=== PATIENT | female | born 1980 | race Caucasian/White ===

== ENCOUNTER 2019-02-17 22:36 | Emergency (ER) | payer BC ==
[~2019-02-17] VITALS: Ht 152.4 cm; Wt 54.4 kg
[2019-02-17] MEDS ORDERED: HYDROCODONE/APAP 7.5MG-325MG 1 EA TAB PO PRN (23:30)
[2019-02-17] MEDS ORDERED: HYDROCODONE/APAP 7.5MG-325MG 1 EA TAB ONE (23:32)
--- NOTE | 2019-02-18 00:22 | Diagnostic Imaging Report ---
ANKLE 3+ VIEWS LEFT - 3 views HISTORY: Pain status post fall. COMPARISON: None available. FINDINGS: Bones: There is a lower corticated ossicle projected distal to the distal fibular epiphysis measuring 6.1 mm suggesting prior avulsion injury. Well-corticated ossicle projected on the talonavicular joint on the lateral view also suggestive of remote injury. Mild irregularity of the distal tibial epiphysis anteriorly on the lateral view. Joints: The joint spaces are well-maintained. Soft tissues: Severe lateral malleolar soft tissue swelling. Phleboliths distal lower right. Small ankle effusion. IMPRESSION: 1. Possible nondisplaced fracture of the distal tibial epiphysis. 2. Severe lateral malleolar soft tissue swelling. Probable remote avulsion injury of the distal fibular epiphysis. Consider nonemergent MRI of ankle for evaluation of ligamentous injury. Signed by: Dr. Paula Serrano M.D. on 02/18/2019 12:19 AM
== END 2019-02-18 00:50 | disposition home or self-care (01) ==
LOC: ER 22:36
DX: S82.875A Nondisplaced pilon fracture of left tibia, initial encounter for closed fracture (principal); S93.492A Sprain of other ligament of left ankle, initial encounter; W18.30XA Fall on same level, unspecified, initial encounter; X50.1XXA Overexertion from prolonged static or awkward postures, initial encounter; Y92.009 Unspecified place in unspecified non-institutional (private) residence as the place of occurrence of the external cause
CPT/HCPCS: 99283

== ENCOUNTER 2019-07-05 11:07 | Inpatient (IN) | payer BC ==
[~2019-07-05] VITALS: Ht 152.4 cm; Wt 53.1 kg
--- OUTSIDE RECORDS SUMMARY | 2019-07-05 11:10 | XMS REPORT ---
Author Author [facility] Address Unknown Phone Unavailable Care Team Providers Care Cna Ltc Name Role Phone Gely CASTRO Unavailable Unavailable Payers Payer Name Policy Type Policy Number Effective Date Expiration Date Problems This patient has no known problems. Allergies, Adverse Reactions, Alerts This patient has no known allergies or adverse reactions. Medications This patient has no known medications. Results Test Description Test Time Test Comments Text Results Atomic Results Result Comments ANKLE 3+ VIEWS LEFT 2019-02-18 00:15:00 [place] [address] Patient Name: PRERNA HOUSER MR #: [id number] : 1980 Age/Sex: 39/F Req #: [id number] Adm Physician: Ordered by: JAIR CASTRO MD Report #: [id number] Location: ER Room/Bed: Procedure: [id number] DX/ANKLE 3+ VIEWS LEFT Exam Date: 02/18/19 Exam Time: 2350 REPORT STATUS: Signed ANKLE 3+ VIEWS LEFT - 3 views HISTORY: Pain status post fall. COMPARISON: None available. FINDINGS: Bones: There is a lower corticated ossicle projected distal to the distal fibular epiphysis measuring 6.1 mm suggesting prior avulsion injury. Well-corticated ossicle projected on the talonavicular joint on the lateral view also suggestive of remote injury. Mild irregularity of the distal tibial epiphysis anteriorly on the lateral view. Joints: The joint spaces are well- maintained. Soft tissues: Severe lateral malleolar soft tissue swelling. Phleboliths distal lower right. Small ankle effusion. IMPRESSION: 1. Possible nondisplaced fracture of the distal tibial epiphysis. 2. Severe lateral malleolar soft tissue swelling. Probable remote avulsion injury of the distal fibular epiphysis. Consider nonemergent MRI of ankle for evaluation of ligamentous injury. Signed by: Dr. Paula Serrano M.D. on 02/18/2019 12:19 AM Dictated By: DANUTA SERRANO MD, MD Transcribed By: ELISA on 02/18/1918 COPY TO: JAIR CASTRO MD
[2019-07-05] MEDS ORDERED: KETOROLAC TROMETHAMINE 30 MG/ML VIAL IV STA (11:20)
[2019-07-05] MEDS ORDERED: SODIUM CHLORIDE 0.9% 1000ML 1,000 ML IV STA ×2 (11:20→12:51)
[2019-07-05 11:54] LABS: BASOPHILS # (AUTO) 0.1 (0.0-0.1); BASOPHILS % 0.3 % (0.0-1.0); EOSINOPHILS % 0.1 % (0.0-6.0); HEMATOCRIT 42.2 % (34.2-44.1); HEMOGLOBIN 14.5 g/dL (12.0-16.0); LYMPHOCYTES # (AUTO) 0.9 (1.0-3.2); LYMPHOCYTES % 2.7 % (18.0-39.1); MEAN CORPUSCULAR HEMOGLOBIN 30.5 pg (28-32); MEAN CORPUSCULAR HGB CONC 34.4 g/dL (31-35); MEAN CORPUSCULAR VOLUME 88.8 fL (81-99); MONOCYTES # (AUTO) 1.3 (0.2-0.8); MONOCYTES % 3.9 % (4.4-11.3); NEUTROPHILS # (AUTO) 29.1 (2.1-6.9); NEUTROPHILS % 89.5 % (38.7-80.0); PLATELET COUNT 398 x10e3/uL (140-360); RED BLOOD COUNT 4.75 x10e6/uL (3.6-5.1); RED CELL DISTRIBUTION WIDTH 13.6 % (11.7-14.4)
[2019-07-05 12:10] LABS: STREPTOCOCCUS GRP A ANTIGEN NEGATIVE (NEGATIVE)
[2019-07-05 12:12] LABS: ALANINE AMINOTRANSFERASE 17 IU/L (0-55); ALBUMIN 3.3 g/dL (3.5-5.0); ALKALINE PHOSPHATASE 89 IU/L (40-150); ANION GAP 12.1 mmol/L (8-16); BLOOD UREA NITROGEN 12 mg/dL (7-26); BUN/CREATININE RATIO 15 (6-25); CALCIUM 9.5 mg/dL (8.4-10.2); CARBON DIOXIDE 25 mmol/L (22-29); CHLORIDE 101 mmol/L (98-107); CREATINE KINASE 26 IU/L (29-168); CREATININE, SERUM 0.78 mg/dL (0.57-1.11); EST GLOMERULAR FILTRATION RATE > 60 ML/MIN (60-); GLUCOSE 119 mg/dL (74-118); POTASSIUM 3.1 mmol/L (3.5-5.1); SODIUM 135 mmol/L (136-145)
[2019-07-05 12:14] LABS: INFLUENZAE A&B ANTIGEN (RAPID) NEGATIVE (NEGATIVE)
[2019-07-05 12:30] LABS: MONOCYTES % (MANUAL) 3 % (3.4-9.0); NEUTROPHILS % (MANUAL) 97 % (40-74)
--- NOTE | 2019-07-05 12:31 | Diagnostic Imaging Report ---
Exam: Chest radiograph Clinical History: Flulike symptoms Findings: The cardiomediastinal silhouette and lungs are normal. The regional skeleton and soft tissue are unremarkable. There is no evidence of pleural effusion or pneumothorax. Impression: No radiographic evidence of acute cardiopulmonary disease. Signed by: Dr. Daniel Ortiz MD on 07/05/2019 12:29 PM
[2019-07-05] MEDS ORDERED: PIPER-TAZ 3.375 GM 50 ML IV STA (13:19)
[2019-07-05] MEDS: SODIUM CHLORIDE 0.9% 1000ML 1,000 ML IV SCH ×2 (13:42→21:39)
[2019-07-05] MEDS ORDERED: VANCOMYCIN 750MG/NS 150ML IVPB 150 ML IV SCH (13:45)
[2019-07-05] MEDS ORDERED: MORPHINE SULFATE INJ 4 MG/ML INJ 1ML IV PRN (13:45)
[2019-07-05] MEDS ORDERED: ONDANSETRON HCL INJ 2MG/ML 2ML 2 MG/ML VIAL IV PRN (13:45)
[2019-07-05] MEDS ORDERED: VANCOMYCIN 1GM/NS 250 ML 250 ML IV ONE (14:00)
[2019-07-05 14:47] LABS: BILIRUBIN,URINE NEGATIVE (NEGATIVE); CLARITY,URINE CLOUDY (CLEAR); COLOR,URINE YELLOW (YELLOW); KETONES,URINE NEGATIVE (NEGATIVE); LEUKOCYTE ESTERASE ,URINE 1+ (NEGATIVE); PROTEIN,URINE DIPSTICK 1+ (NEGATIVE); URINE UROBILINOGEN 0.2 mg/dL (0.2 - 1)
[2019-07-05] MEDS ORDERED: IOPAMIDOL 370 MG/ML 200 ML INFUS..BTL INJ ONE (14:48)
[2019-07-05] MEDS ORDERED: SODIUM CHLORIDE 0.9% 50ML 50 ML ONE (14:48)
[2019-07-05 14:51] LABS: BACTERIA,URINE MODERATE /HPF; EPITHELIAL CELLS,URINE MANY /LPF; NITRITE,URINE POSITIVE (NEGATIVE); RBC,URINE 0-5 /HPF (0-5); RENAL EPITHELIAL CELLS,URINE RARE; TRANSITIONAL EPI CELLS,URINE RARE; WBC,URINE (MAN) >50 /HPF (0-5)
--- NOTE | 2019-07-05 14:55 | Diagnostic Imaging Report ---
Exam: CT pulmonary angiogram Clinical History: Pulmonary embolism DOSE REDUCTION: The exams was performed according to the departmental dose-optimization program which includes automated exposure control, adjustment of the mA and/or kV according to patient size and/or use of iterative reconstruction technique. Technique: Helical images of the chest were obtained after IV contrast administration using the pulmonary embolism protocol. Findings: There is no evidence of acute pulmonary embolism in the main pulmonary artery or its visualized branches. There is no evidence of pulmonary edema, consolidation, pleural effusion, or pneumothorax. The tracheobronchial tree is clear. There is no evidence of mediastinal or hilar adenopathy. The cardiac size is within normal limits. The great vessels are normal in caliber and configuration. The visualized upper abdominal solid organs are unremarkable. Impression: No CT evidence of acute pulmonary embolism. Signed by: Dr. Daniel Ortiz MD on 07/05/2019 2:51 PM
[2019-07-05] MEDS: VANCOMYCIN 750MG/NS 150ML IVPB 150 ML IV SCH (16:08)
[2019-07-05] MEDS: ACETAMINOPHEN 325 MG TAB PO PRN ×2 (16:13→22:26)
[2019-07-05 16:27] VITALS: BP 105/57
[2019-07-05 17:15] VITALS: BP 105/57
[2019-07-05] MEDS ORDERED: ZOLPIDEM TARTRAT5 MG PO (19:07)
[2019-07-05] MEDS ORDERED: SERTRALINE HCL100 MG PO (19:07)
[2019-07-05 20:23] VITALS: BP 101/53
[2019-07-05] MEDS: FAMOTIDINE 20 MG/2 ML VIAL IV SCH (21:39)
[2019-07-05] MEDS: PIPER-TAZ 3.375 GM 50 ML IV SCH (21:40)
--- NOTE | 2019-07-05 22:28 | NUR ---
HPI: Mrs. Rocha is a 39-year-old female who presented to the emergency department with a history of 3 days of fever, runny nose, headache, malaise, fatigue, generalized weakness. The patient also presented with left breast tenderness, heat, swelling, and redness posteriorly to breast augmentation surgery. The patient denies nausea, vomiting, chest pain, palpitations, paroxysmal nocturnal dyspnea, shortness of breath, dyspnea, abdominal pain, diarrhea, melena, dysuria, hematuria, frequency, constipation, leg swelling. Review of system: Constitutional: Fever, generalized weakness, malaise. No chills. HEENT: Headache. Denies ear pain, nose bleeding, sore throat. Cardiovascular: Denies chest pain, PND, swelling of the legs, palpitations or blackout spells. Breast: Swelling and tenderness of the left breast. Respiratory: Denies cough, hemoptysis or shortness of breath. Gastrointestinal: Denies nausea, vomiting, diarrhea, hematemesis or melena. Genitourinary: Denies hematuria, frequency or dysuria. Neurologic: Denies convulsive disorders, no focal weakness, no ataxia. Psych: Denies anxiety or depression Skin: Redness, tenderness, swelling, heat in the left breast skin. No rash. Hematological system: Denies bleeding, no petechia. Musculoskeletal: No significant deformity or swelling of the joints. Past medical history: History of anxiety, depression, insomnia. Past surgical history: Cosmetic breast augmentation surgery. Family history: Unremarkable Social history: Never smoker. No alcohol abuse. No use of drugs. Physical exam: Vital signs: Temperature: 97.9 Pulse: 106 Respiratory rate: 18 Blood pressure: 92/49 O2 sat: 94% Constitutional: The patient is oriented to person, place, and time. She appears well-developed. HEENT: Head: Normocephalic and atraumatic. PERRLA. Cardiovascular: Regular rhythm, no murmurs, no rubs, no gallops. Pulmonary/Chest: Clear bilaterally, no rales, no rhonchi. Abdominal: Soft, nontender, bowel sounds positive and normal. No distention, no guarding, no rebound. Musculoskeletal: Normal range of motion. Extremities: No edema, no clubbing. Neurological: The patient is alert and oriented to person, place, and time. Skin: Redness, tenderness, swelling, heat in the left breast. Skin is warm and dry. Psychiatric: He has a normal mood and affect. Laboratory data: WBC: 32.54 RBC: 4.75 Hgb: 14.5 HCT: 42.2 MCV: 88.8 MCH: 30.5 MCHC: 34.4 RDW: 13.6 Platelet count: 398 Neutrophils: 89.5% Lymphocytes: 2.7% Monocytes: 3.9% Eosinophils: 0.1% Basophils: 0.3% Neutrophils: 29.1 Lymphocytes: 0.9 Monocytes: 1.3 Eosinophils: 0.0 Basophils: 0.1 Abs immature Gran: 1.14 Total counted: 33 Neutrophils percent manual: 97 Monocytes percent manual: 3 D-dimer: 418 Sodium: 135 Potassium: 3.1 Chloride: 101 Carbon dioxide: 25 Anion gap: 12.1 BUN: 12 Creatinine: 0.78 Estimated GFR: > 60 BUN/creatinine ratio: 15 Glucose: 119 Lactic acid: 1.6 Calcium: 9.5 Total bilirubin: 0.5 AST: 18 ALT: 17 Alkaline phosphatase: 89 Creatinine kinase: 26 CK-MB: 0.50 Troponin I: 0.002 Total protein: 6.7 Albumin: 2.3 Globulin: 3.4 Albumin/globulin ratio: 1.0 hCG, Qual: Negative Urinalysis: Urine color: Yellow Urine clarity: Cloudy Urine pH: 5.5 Urine specific gravity: 1.015 Urine protein: 1+ Urine glucose: Negative Urine ketones: Negative Urine blood: Trace Urine nitrate: Positive Urine bilirubin: Negative Urine urobilinogen: 0.2 Urine leukocyte Estrace: 1+ Urine RBC: 0-5 Urine WBC: > 50 Urine epithelial cells: Many Urine transitional epithelial cells: Rare Urine renal epithelial cells: Rare Urine bacteria: Moderate Serology: Influenza types A, B Ag: Negative Group A strep screen: Negative Assessment: Status post breast implant Cellulitis of the left breast Plan of care: Supportive care List of medications reviewed Reconciled medications Warm compress to the local area IV antibiotics IV fluids Pain control DVT/GI prophylaxis ID consultation Follow-up labs Consult ID
[2019-07-05 22:34] VITALS: BP 100/53
[2019-07-06] VITALS (8 sets, daily range): BP systolic 87–107; BP diastolic 46–62
[2019-07-06] MEDS: ZOLPIDEM TARTRATE 5 MG TAB PO PRN (00:12)
[2019-07-06] MEDS: VANCOMYCIN 750MG/NS 150ML IVPB 150 ML IV SCH (03:30)
[2019-07-06 05:11] LABS: BASOPHILS % 0.2 % (0.0-1.0); EOSINOPHILS # (AUTO) 0.1 (0.0-0.4); EOSINOPHILS % 0.5 % (0.0-6.0); HEMATOCRIT 35.2 % (34.2-44.1); HEMOGLOBIN 12.3 g/dL (12.0-16.0); LYMPHOCYTES # (AUTO) 1.3 (1.0-3.2); LYMPHOCYTES % 5.9 % (18.0-39.1); MEAN CORPUSCULAR HEMOGLOBIN 30.7 pg (28-32); MEAN CORPUSCULAR HGB CONC 34.9 g/dL (31-35); MEAN CORPUSCULAR VOLUME 87.8 fL (81-99); MONOCYTES # (AUTO) 1.3 (0.2-0.8); MONOCYTES % 6.2 % (4.4-11.3); NEUTROPHILS # (AUTO) 18.3 (2.1-6.9); NEUTROPHILS % 85.4 % (38.7-80.0); PLATELET COUNT 316 x10e3/uL (140-360); RED BLOOD COUNT 4.01 x10e6/uL (3.6-5.1); RED CELL DISTRIBUTION WIDTH 13.5 % (11.7-14.4)
[2019-07-06 05:36] LABS: ALANINE AMINOTRANSFERASE 73 IU/L (0-55); ALBUMIN 2.3 g/dL (3.5-5.0); ALBUMIN/GLOBULIN RATIO 0.9 (0.8-2.0); ALKALINE PHOSPHATASE 85 IU/L (40-150); ANION GAP 8.1 mmol/L (8-16); BLOOD UREA NITROGEN 9 mg/dL (7-26); BUN/CREATININE RATIO 15 (6-25); CALCIUM 7.9 mg/dL (8.4-10.2); CARBON DIOXIDE 22 mmol/L (22-29); CHLORIDE 112 mmol/L (98-107); CREATININE, SERUM 0.59 mg/dL (0.57-1.11); EST GLOMERULAR FILTRATION RATE > 60 ML/MIN (60-); GLUCOSE 106 mg/dL (74-118); POTASSIUM 3.1 mmol/L (3.5-5.1); SODIUM 139 mmol/L (136-145)
--- NOTE | 2019-07-06 06:28 | Diagnostic Imaging Report ---
Examination: Single AP view of the chest. COMPARISON: CT chest 07/05/2019 INDICATION: Chest pain DISCUSSION: The lungs are well inflated. No focal consolidation, pleural effusion, or pneumothorax. Cardiomediastinal contour and pulmonary vasculature are within normal limits when accounting for AP technique. No acute osseous abnormalities. IMPRESSION: 1. No acute cardiopulmonary abnormalities. Signed by: Dr. Joe Contreras M.D. on 07/06/2019 6:26 AM
[2019-07-06] MEDS: PIPER-TAZ 3.375 GM 50 ML IV SCH ×3 (06:31→22:10)
[2019-07-06] MEDS: ACETAMINOPHEN 325 MG TAB PO PRN (08:58)
[2019-07-06] MEDS: SERTRALINE HCL 100 MG TAB PO SCH (08:59)
[2019-07-06] MEDS: FAMOTIDINE 20 MG/2 ML VIAL IV SCH (08:59)
[2019-07-06] MEDS: SODIUM CHLORIDE 0.9% 1000ML 1,000 ML IV SCH ×3 (09:01→22:10)
--- NOTE | 2019-07-06 14:50 | NUR ---
Visit made by the Spiritual Care Department Pastoral Visitor, Devorah Mann. PV provided pastoral presence, prayer, hospitality, and supportive listening. Pastoral Visitor informed pt/family of the scope of [employer] and availability. BURT JULES Minute Clerk For [employer] Spiritual Care Department O: [phone]
[2019-07-06] MEDS: FAMOTIDINE 20 MG TAB PO SCH (16:58)
[2019-07-06] MEDS: HYDROCODONE/APAP 5MG-325MG TAB PO PRN (18:37)
--- NOTE | 2019-07-06 19:33 | NUR ---
report given to oncoming nurse, walking rounds complete.
--- NOTE | 2019-07-06 20:23 | NUR ---
[facility] [id number]
[2019-07-07] VITALS: BP 118/59
--- NOTE | 2019-07-07 00:40 | NUR ---
Date of service: 07/06/2019 Subjective: The patient was doing fine at the time of evaluation she feels much better. She still having some pain on the left breast. She has been complaining of fever. Overall looking better. No chest pain or shortness of breath. Objective: Patient alert oriented to person time and place. Vital signs stable Vital signs: Blood pressure 107/62, respiration 20, temperature 100.5 pulse 100 HEENT: No gross abnormalities Neck: Supple no JVD Examination of the chest wall: Cellulitis on the left breast has improved. Lungs: Clear to auscultation Heart: Regular rate and rhythm, no murmurs no gallops Abdomen: Soft non tender, no guarding. Extremities: No edema Neurologic: Alert oriented 3, no focal weakness. Psychiatrist: Normal mood, normal judgment. Skin: No rashes Assessment: Cellulitis of left breast Leukocytosis Fever Plan of care: ID consultation requested with Dr. Ly Continue antibiotic as advised
--- NOTE | 2019-07-07 03:14 | Consultation ---
DATE OF CONSULTATION: 07/06/2019 REASON FOR CONSULTATION: Cellulitis of the left breast with infected implant. HISTORY OF PRESENT ILLNESS: This patient is a very pleasant 39-year-old female, who had bilateral breast implant. This is a redo. The last one was many years ago. She had it a few weeks ago. She is coming to this hospital with redness and swelling of the left breast and feeling feverish. The patient came to the emergency room, where she was evaluated and admitted. I was asked to see her. She denies any history of trauma. PAST MEDICAL HISTORY: Otherwise, she denies. PAST SURGICAL HISTORY: Multiple plastic surgeries. ALLERGIES: NKA. SOCIAL HISTORY: There is no smoking, drug abuse, or alcohol abuse. FAMILY HISTORY: Otherwise unremarkable. REVIEW OF SYSTEMS: HEENT: Negative. PULMONARY: Negative. CARDIAC: Negative. : Negative. SKIN: There are no other rashes. LABORATORY DATA: Reviewed. Her urine culture showing gram-negative rods. Blood cultures still pending. When she first came, she had a white count of 32, came back to 21, hemoglobin 14, and hematocrit 42. Sodium 139, potassium 3.1, and creatinine 0.59. She had a CT of the chest, which showed there is no evidence for acute pulmonary embolism. She had a chest x-ray that showed no acute cardiopulmonary abnormality. PHYSICAL EXAMINATION: GENERAL: She is currently alert, oriented, does not seem to be in acute distress. VITAL SIGNS: Stable, currently afebrile. Temperature 97.6, heart rate 105, respiration 87/59, and T-max was 100.5. HEENT: Normocephalic, not pale or icteric. NECK: Supple. CHEST: Few crackles at the bases. HEART: S1, S2. No S3, S4, or murmur. ABDOMEN: Soft. Bowel sounds present. No tenderness. EXTREMITIES: No edema. BREASTS: On the breast, there is erythema, there is edema, and there is warmth, but I do not see any fluctuation. No fever fluctuation. IMPRESSION: Cellulitis of the breasts. Concerned about the infected implant. Discussed with the patient. Plans discussed with Plastic Surgery. I called Dr. Costello, her plastic surgeon. The plan is to continue vancomycin and Zosyn for now. Await blood cultures. Recheck CBC. Recheck Chem panel. Would need a PICC line for a few weeks of IV antibiotic. We will see how she is going to do clinically. We will follow with you. We would like the CBC to normalize and the blood cultures to be negative before discharge. MD AILEEN Ramirez/FLORENCIO /[id number]
[2019-07-07] MEDS: VANCOMYCIN 750MG/NS 150ML IVPB 150 ML IV SCH ×2 (03:32→15:00)
[2019-07-07 04:00] VITALS: BP 93/52
[2019-07-07] MEDS: PIPER-TAZ 3.375 GM 50 ML IV SCH ×3 (06:44→21:48)
[2019-07-07] MEDS: SODIUM CHLORIDE 0.9% 1000ML 1,000 ML IV SCH ×3 (06:44→21:42)
[2019-07-07 07:32] VITALS: BP 124/59
[2019-07-07] MEDS: FAMOTIDINE 20 MG TAB PO SCH ×2 (07:45→16:29)
[2019-07-07] MEDS: SERTRALINE HCL 100 MG TAB PO SCH (07:45)
[2019-07-07 07:48] VITALS: BP 124/59
[2019-07-07] MEDS: HYDROCODONE/APAP 5MG-325MG TAB PO PRN ×3 (08:20→21:52)
--- NOTE | 2019-07-07 08:24 | NUR ---
patient left breast tenderness, heat, swelling, and redness, now has leakage, with yellowish fluid draining , Dr feldman was called.
--- NOTE | 2019-07-07 09:23 | NUR ---
Dr. Scott was recalled for 2nd time.
[2019-07-07 11:59] VITALS: BP 108/67
--- NOTE | 2019-07-07 12:00 | NUR ---
call from Dr. Baumann, to make pt NPO.
--- NOTE | 2019-07-07 12:20 | NUR ---
Dr Palomares, called for pt to be NPO, for surgery today.
[2019-07-07] MEDS ORDERED: BACITRACIN 50,000 UNIT VIAL ONE (13:26)
[2019-07-07] MEDS ORDERED: MUPIROCIN 2% OINT 22 GM TUBE ONE (15:31)
--- NOTE | 2019-07-07 17:14 | Progress Note ---
DATE: 07/07/2019 I have spoken with her surgeon yesterday and also today. SUBJECTIVE: Ms. Rocha who is currently complaining of drainage from her wound from underneath the breasts, which started today. She said it was copious amount overnight. It is better. Dr. Oliverio Frances called me yesterday, her Plastic Surgery to let me know that there is drainage from the wound. Her white count came down to 21.4. Her sodium was 139. PHYSICAL EXAMINATION: GENERAL: She is currently alert, oriented, does not seem to be in acute distress. VITAL SIGNS: Stable. Currently afebrile. HEENT: She is not icteric. NECK: Supple. HEART: S1, S2. No S3, S4, or murmur. ABDOMEN: Soft. Bowel sounds present. No tenderness and breast seem to be less erythematous. There is drainage noted underneath the breasts. IMPRESSION: Infected implant, cellulitis concerned about abscess. PLAN: To obtain wound culture. She is going for surgery today for debridement and removal of the implant, PICC line. Recheck CBC. Recheck chem panel. Discussed with all the doctors. Discussed with the patient, answered all their questions. We will obtain vancomycin level trough. MD AILEEN Ramirez/FLOERNCIO /[id number]
[2019-07-07] MEDS ORDERED: DEXAMETHASONE SOD PHOS INJ 4 MG/ML VIAL ONE (18:22)
[2019-07-07] MEDS ORDERED: ONDANSETRON HCL INJ 2MG/ML 2ML 2 MG/ML VIAL ONE (18:22)
[2019-07-07] MEDS ORDERED: LIDOCAINE HCL 2% LOCAL INJ 5 ML SDV VIAL INJ ONE (18:22)
[2019-07-07] MEDS ORDERED: SEVOFLURANE INHAL SOLN 250 ML PEN BTL ONE (18:22)
[2019-07-07] MEDS ORDERED: PROPOFOL IV EMULSION 10 MG/ML 20 ML VIAL ONE (18:22)
--- NOTE | 2019-07-07 19:15 | NUR ---
Report given to oncoming nurse, Walking rounds complete.
--- NOTE | 2019-07-07 19:26 | Operative Report ---
DATE OF PROCEDURE: 07/07/2019 SURGEON: Kodak Palomares MD TIME: 1337 hours. PREOPERATIVE DIAGNOSIS: Infected left breast implant (periprosthetic infection). POSTOPERATIVE DIAGNOSIS: Infected left breast implant (periprosthetic infection). PROCEDURES: 1. Removal of left breast implant. 2. Irrigation of left breast pocket. 3. Placement of closed suction drain. ANESTHESIA: General. HISTORY: The patient is a 39-year-old female, who underwent bilateral breast augmentation in March of 2019. The patient had her teeth cleaned approximately 10 to 12 days ago. She presented to the emergency room on the afternoon of the with fevers, chills, and left breast pain, swelling and erythema. She was admitted and started on intravenous antibiotics. Plastic Surgery consultation was obtained today. It was noted that there was significant infection around the left breast implant and recommendations made that the implant be removed. The risks, benefits, and alternatives of treatment were discussed with the patient and the family. They are prepared to undergo the procedure as outlined. PROCEDURE IN DETAIL: The patient was marked preoperatively in the holding area. She was brought to the operating theater and after the induction of adequate general anesthesia, cultures were obtained of the purulent exudate from the left breast. After the cultures were obtained, the patient was prepped and draped in a supine position and a time-out was performed. The inframammary incision was incised through the skin and subcutaneous tissues. Immediately, upon entering the pocket, purulent exudate was noted. The incision was made just large enough to allow removal of the implant without difficulty. At this point, the pocket was irrigated with several liters of antibiotic-containing solution and power lavage system. Once the effluent was clear, a 10-Georgian Derrick-Syed drain was placed within the pocket and secured to the skin with 3-0 nylon sutures. At this point, the incision was closed with a running 3-0 suture. Bactroban ointment and Xeroform gauze were placed on the incision, and a sterile dressing applied. The drain was placed on suction and was noted to hold suction well. The patient tolerated the procedure well. Estimated blood loss of procedure was minimal. She was returned to recovery room in satisfactory condition and re-admitted to her hospital room for further care and treatment. MD JACOB Durant/MODL /[id number]
[2019-07-07] MEDS ORDERED: MIDAZOLAM HCL 2 MG/2 ML VIAL ONE (20:14)
[2019-07-07] MEDS ORDERED: FENTANYL CITRATE/PF 100MCG/2 ML INJ ONE (20:14)
--- NOTE | 2019-07-07 21:36 | Consultation ---
DATE OF CONSULTATION: 07/07/2019 The physician requesting the consultation is Dr. Lana Baumann. The consultation is requested of Kodak Palomares MD, Plastic Surgery. CHIEF COMPLAINT: Infected left breast prosthesis. HISTORY OF PRESENT ILLNESS: The patient is a 39-year-old female, who states that around 2018, she underwent bilateral breast augmentation. The patient states that she was undergoing a standard dental cleaning approximately on Thursday of 06/29/2019, without any complications. She states that approximately one week later, she started to develop an achy type of feeling. She thought she was coming down with the flu. She states that approximately 48 hours later, she felt markedly worse and went to an Urgent Care Center. They could not find any source for her infection. She was given antibiotics and told to follow up with her primary care doctor. Approximately 48 hours later, she became markedly worse and this time went to the emergency room here at the hospital. She was admitted and was noted to have significant leukocytosis. The left breast was swollen and erythematous, but no drainage she reports at that time. Over the past 24 to 48 hours, the left breast has continued to worsen and now has drainage. Infectious Disease has requested Plastic Surgery evaluate the patient for possible surgical intervention. PAST MEDICAL HISTORY: Noncontributory to the current problem. PAST SURGICAL HISTORY: Noncontributory to the current problem. PHYSICAL EXAMINATION: VITAL SIGNS: She is afebrile this morning. Her vital signs are stable. CHEST: Examination of the left chest reveals her to have surgical incisions consistent with a circumareolar mastopexy and breast augmentation through an inframammary approach. The breast is swollen. It erythematous and there is purulent exudate draining from the inferior incision. LABORATORY DATA: White blood cell count on admission was 32,000, yesterday was 21,000. There is no report of CBC today. Her blood cultures are negative after 48 hours. She did have urine culture on admission, which shows E coli. She had a chest CT on admission, which does not report any fluid collections or evidence of infection in or around the breast prosthesis. IMPRESSION: Left breast periprosthetic infection. PLAN: I have discussed the pathophysiology of periprosthetic infections with the patient and her parents. She will be taken to the OR today to have the implant removed and have the pocket washed out and closed over a suction drain. Thank you for allowing me to participate in the care of your patient. MD JACOB Durant/FLORENCIO /[id number]
[2019-07-07] MEDS: ZOLPIDEM TARTRATE 5 MG TAB PO PRN (22:55)
[2019-07-07 23:32] VITALS: BP 115/56
[2019-07-08] VITALS (12 sets, daily range): BP systolic 91–116; BP diastolic 51–67
[2019-07-08] MEDS: VANCOMYCIN HCL 1.25 GM in SODIUM CHLORIDE 0.9% 250ML 250 ML IV SCH ×2 (02:26→12:00)
[2019-07-08] MEDS: VANCOMYCIN 750MG/NS 150ML IVPB 150 ML IV SCH ×2 (03:01→03:45)
[2019-07-08] MEDS: SODIUM CHLORIDE 0.9% 1000ML 1,000 ML IV SCH ×3 (03:49→22:12)
[2019-07-08] MEDS: PIPER-TAZ 3.375 GM 50 ML IV SCH ×3 (06:35→22:13)
[2019-07-08] MEDS ORDERED: XANAX0.25 MG PO (07:18)
[2019-07-08] MEDS: FAMOTIDINE 20 MG TAB PO SCH ×2 (08:43→16:42)
[2019-07-08] MEDS: SERTRALINE HCL 100 MG TAB PO SCH (08:43)
[2019-07-08] MEDS: HYDROCODONE/APAP 5MG-325MG TAB PO PRN ×4 (08:44→22:13)
[2019-07-08] MEDS ORDERED: ONDANSETRON HCL 4 MG ORAL DISINTEGRATING TAB PO PRN (09:15)
--- NOTE | 2019-07-08 19:10 | NUR ---
Report given to oncoming nurse of patient's status. Resting in bed. No s/s of acute distress noted. Side rails upx2, call light within reach, mother at bedside.
--- NOTE | 2019-07-08 21:11 | NUR ---
Subjective: The patient was seen and evaluated. The patient is in no distress. Denies fever chills. No chest pain or shortness of breath. She has been follow-up pertainining left breast periprosthetic infection. The patient was ta carlos to the OR by Dr. Palomares and the implant was removed and the pocket was out and closed over his suction drain and this information is been obtained from Dr. Palomares progress note. Postop she has been doing well no fever no chills he feels great. Objective: The patient has been alert oriented to person time place. The patient has been in no distress. Vital signs: Blood pressure 116/67, respiration 20, pulse 80, temperature 96.4 HEENT: No gross abnormalities Neck: Supple no JVD Lungs: Clear to auscultation Chest Wall: Recently underwent removal of breast implant left side Heart: Regular rate and rhythm, no murmurs no gallops Abdomen: Soft non tender, no guarding. Extremities: No edema Neurologic: Alert oriented 3, no focal weakness. Psychiatrist: Normal mood, normal judgment. Skin: No rashes Lab data: As of 07/06/2019 WBC 21.42, hemoglobin 12.3, platelet count 316,000 Sodium 139, potassium 3.1, chloride 112, CO2 22, calcium level 7.9, AST 92, ALT 73 Chest x-ray on 07/05/2019 no acute cardiopulmonary abnormalities Medications: Hampton 5/325 1 p.o. every 4 hours. For pain, famotidine 20 m p.o. twice daily, Zosyn, sertraline, Ambien, acetaminophen..... Assessment: Cellulitis of left breast Leukocytosis Fever Left breast periprosthetic infection. Plan of care: Continue present care bucrylate line continue to biotics and pain management.Follow-up labs.
[2019-07-08] MEDS: ZOLPIDEM TARTRATE 5 MG TAB PO PRN (22:22)
[2019-07-09] VITALS (10 sets, daily range): BP systolic 109–127; BP diastolic 58–86
[2019-07-09] MEDS: HYDROCODONE/APAP 5MG-325MG TAB PO PRN ×4 (04:31→19:39)
[2019-07-09] MEDS: SODIUM CHLORIDE 0.9% 1000ML 1,000 ML IV SCH ×3 (05:42→21:42)
[2019-07-09] MEDS: PIPER-TAZ 3.375 GM 50 ML IV SCH (06:00)
[2019-07-09] MEDS: FAMOTIDINE 20 MG TAB PO SCH ×2 (09:12→16:56)
[2019-07-09] MEDS: SERTRALINE HCL 100 MG TAB PO SCH (09:12)
[2019-07-09] MEDS: CEFTRIAXONE SOD 2 GM/NS 100 ML 100 ML IV SCH (14:22)
[2019-07-09] MEDS ORDERED: VANCOMYCIN HCL 1.25 GM in SODIUM CHLORIDE 0.9% 250ML 250 ML IV SCH (15:00)
--- NOTE | 2019-07-09 19:20 | NUR ---
BSSR RECEIVED FROM QUINTON RN, PATIENT AOX4, SKIN WARM DRY, NO DISTRESS NOTED, LEFT CHEST DRESSING C/D/I, SUMMER DRAIN IN PLACE PATENT, CALL LIGHT WITHIN REACH, REQUESTING PAIN MEDICATION FOR PAIN LEVEL 10/18, RN QUINTON WILL GIVEN MEDICATION PRIOR TO END OF SHIFT
--- NOTE | 2019-07-09 19:38 | NUR ---
Subjective: The patient was seen and evaluated. The patient is feeling better however complaining of headache. Denies fever, no chills. No shortness of dudley th. No abdominal pain, no nausea, no vomiting, no diarrhea. No discomfort on the left breast. Objective: Patient alert oriented to person time place. Patient no distress. Vital signs blood pressure 126/72, respiration 18, pulse 88, temperature 97.8 HEENT: No gross abnormalities Neck: Supple no JVD Chest wall: Dressing placed on the left breast Lungs: Clear to auscultation Heart: Regular rate and rhythm, no murmurs no gallops Abdomen: Soft non tender, no guarding. Extremities: No edema Neurologic: Alert oriented 3, no focal weakness. Psychiatrist: Normal mood, normal judgment. Skin: No rashes Lab data: CBC as of 07/06/2019 revealed. WBC 21,000, hemoglobin 14.5, platelet count 398,000. Assessment: Left breast periprosthetic infection Leukocytosis Fever Status post removal of left breast implant. Plan of care: Continue to biotics as per ID. PICC line in place. Follow-up labs.
--- NOTE | 2019-07-09 19:38 | NUR ---
walking rounds complete, report handed to oncoming nurse.
[2019-07-09] MEDS ORDERED: ENOXAPARIN SOD INJ 40 MG/0.4 ML SYR SC SCH (19:45)
[2019-07-09] MEDS: ZOLPIDEM TARTRATE 5 MG TAB PO PRN (21:54)
[2019-07-10] VITALS (8 sets, daily range): BP systolic 102–118; BP diastolic 62–85
[2019-07-10] MEDS: SODIUM CHLORIDE 0.9% 1000ML 1,000 ML IV SCH ×3 (01:25→21:42)
[2019-07-10] MEDS: HYDROCODONE/APAP 5MG-325MG TAB PO PRN ×3 (05:14→18:31)
[2019-07-10 06:21] LABS: BASOPHILS # (AUTO) 0.1 (0.0-0.1); BASOPHILS % 1.3 % (0.0-1.0); EOSINOPHILS # (AUTO) 0.1 (0.0-0.4); EOSINOPHILS % 1.2 % (0.0-6.0); HEMATOCRIT 33.4 % (34.2-44.1); HEMOGLOBIN 10.7 g/dL (12.0-16.0); LYMPHOCYTES # (AUTO) 2.2 (1.0-3.2); LYMPHOCYTES % 23.4 % (18.0-39.1); MEAN CORPUSCULAR HEMOGLOBIN 28.9 pg (28-32); MEAN CORPUSCULAR VOLUME 90.3 fL (81-99); MONOCYTES # (AUTO) 1.2 (0.2-0.8); MONOCYTES % 13.2 % (4.4-11.3); NEUTROPHILS # (AUTO) 4.9 (2.1-6.9); NEUTROPHILS % 52.5 % (38.7-80.0); PLATELET COUNT 485 x10e3/uL (140-360); RED CELL DISTRIBUTION WIDTH 14.2 % (11.7-14.4)
[2019-07-10 06:46] LABS: ANION GAP 10.6 mmol/L (8-16); BLOOD UREA NITROGEN 7 mg/dL (7-26); BUN/CREATININE RATIO 12 (6-25); CALCIUM 8.7 mg/dL (8.4-10.2); CARBON DIOXIDE 27 mmol/L (22-29); CHLORIDE 108 mmol/L (98-107); CREATININE, SERUM 0.58 mg/dL (0.57-1.11); EST GLOMERULAR FILTRATION RATE > 60 ML/MIN (60-); GLUCOSE 83 mg/dL (74-118); POTASSIUM 3.6 mmol/L (3.5-5.1); SODIUM 142 mmol/L (136-145)
--- NOTE | 2019-07-10 07:09 | NUR ---
END OF SHIFT REPORT GIVEN TO RN QUINTON, PATIENT NO DISTRESS NOTED SKIN WARM DRY, FAMILY(mom) AT BEDSIDE CURRENTLY, SUMMER DRAIN EMPTIED 30CC SEROSANGUINEOUS FLUID SEEN, PATIENT AMBULATORY, TELEMETRY REMAINS IN PLACE
[2019-07-10] MEDS: SERTRALINE HCL 100 MG TAB PO SCH (08:49)
[2019-07-10] MEDS: FAMOTIDINE 20 MG TAB PO SCH ×2 (08:49→18:31)
[2019-07-10] MEDS: CEFTRIAXONE SOD 2 GM/NS 100 ML 100 ML IV SCH (12:00)
--- NOTE | 2019-07-10 19:26 | NUR ---
walking rounds complete, report handed to oncoming nurse.
--- NOTE | 2019-07-10 19:48 | NUR ---
Date of Service 07/10/2019 Subjective: The patient was seen and evaluated. The patient is doing well. She is anxious to go home. Denies fever, chills, chest pain, SOB, abdominal pain, nausea or vomiting. No discomfort on the left breast. Objective: Patient alert and in no distress. VS: BP 107/85, Pulse 83, RR 20, T 97.9 HEENT: No gross abnormalities Neck: Supple no JVD Chest wall: Dressing placed on the left breast Lungs: Clear to auscultation Heart: Regular rate and rhythm, no murmurs no gallops Abdomen: Soft non tender, no guarding. Extremities: No edema Neurologic: Alert oriented 3, no focal weakness. Psychiatrist: Normal mood, normal judgment. Skin: No rashes Lab data: WBC 9.37, Hb 10.7, HT 33.4. Plat 485. Sodium 142, Potassium 3.6, Chloride 108, BUN 7,Glucose 83, Assessment: Left breast periprosthetic infection Leukocytosis Fever Status post removal of left breast implant. Plan of care: Continue antibiotics as per ID. Will order PICC Arrange for IV antibiotics infusion per behavioral health case manager
[2019-07-10] MEDS: ZOLPIDEM TARTRATE 5 MG TAB PO PRN (21:13)
[2019-07-11] VITALS (9 sets, daily range): BP systolic 91–123; BP diastolic 67–87
--- NOTE | 2019-07-11 02:07 | Diagnostic Imaging Report ---
Examination: Single AP view of the chest. COMPARISON: 07/06/2019 INDICATION: PICC placement DISCUSSION: Interval placement of a right upper extremity PICC. The tip terminates over the low superior vena cava. The lungs are well inflated. No focal consolidation, pleural effusion, or pneumothorax. Cardiomediastinal contour and pulmonary vasculature are within normal limits when accounting for AP technique. Interval postsurgical changes of the left breast with decreased density and a drainage catheter projecting over the left lower hemithorax. IMPRESSION: Tip of right upper extremity PICC terminates over the low superior vena cava. Clear lungs. Signed by: Dr. Joe Contreras M.D. on 07/11/2019 2:05 AM
[2019-07-11] MEDS: SODIUM CHLORIDE 0.9% 1000ML 1,000 ML IV SCH ×3 (05:42→21:02)
[2019-07-11] MEDS: SERTRALINE HCL 100 MG TAB PO SCH (08:23)
[2019-07-11] MEDS: FAMOTIDINE 20 MG TAB PO SCH ×2 (08:23→16:02)
[2019-07-11] MEDS: HYDROCODONE/APAP 5MG-325MG TAB PO PRN ×3 (08:36→19:05)
[2019-07-11] MEDS: CEFTRIAXONE SOD 2 GM/NS 100 ML 100 ML IV SCH (11:10)
--- NOTE | 2019-07-11 13:55 | NUR ---
PATIENT IS AWAKE, ALERT, AND IN STABLE CONDITION WITH NO S/S OF RESPIRATORY DISTRESS. PATIENT C/O LEFT BREAST PAIN 4/10. DRESSING TO LEFT BREAST AREA IS CLEAN, DRY, AND INTACT. TELEMETRY APPLIED. CALL LIGHT IS WITHIN REACH, PATIENT INSTRUCTED TO CALL FOR ASSISTANCE NEEDED.
--- NOTE | 2019-07-11 14:50 | NUR ---
Spoke with Dr. Baumann who said that pt will need IV abx for discharge. CM to pt's bedside to speak to pt regarding insurance. Her previous insurance termed. Pt states that she does not have a new insurance card, but has [employer] [place] with her new job. States should have gone into effect July 10, 2019. Cm placed call to CM for [employer] ([place] at [phone]. Left message for Kateryna for call back.
--- NOTE | 2019-07-11 14:54 | Progress Note ---
DATE: 07/10/2019 Ms. Rocha is late entry for July 09. SUBJECTIVE: Ms. Rocha was doing well. There are no new complaints. The drainage is still in, but it is less serosanguineous. The cultures were noted. She grew E coli, sensitivity pattern reviewed, resistant only to Bactrim, but otherwise pansensitive. REVIEW OF SYSTEMS: Otherwise unremarkable. OBJECTIVE: GENERAL: Currently alert, oriented, does not seem to be in acute distress. VITAL SIGNS: Stable, currently afebrile. HEENT: She is not icteric. NECK: Supple. CHEST: Clear. HEART: S1, S2. No murmur. ABDOMEN: Soft. The breast seems to be better. PLAN: To continue at least two weeks of IV Rocephin, drain is in place. Discussed with the patient, she just changed her insurance. She is going to get me the new insurance information to arrange discharge planning. Discussed with the patient, answered all her questions. MD AILEEN Ramirez/FLORENCIO /[id number]
--- NOTE | 2019-07-11 17:00 | NUR ---
Nutrition Screen Note RD Recommendation for Physician: - Continue Regular diet as tolerated Plan of Care: RD following, monitoring for tolerance and adequacy Nutrition reason for involvement: LOS Primary Diagnose(s): cellulitis of L breast PMH: anxiety, depression, breast augmentation Ht: 60 in Wt: 117.06 lb BMI: 22.9 kg/m2 IBW: [address] Assessment: (07/11/19) 39 YOF admitted for cellulitis of the L breast with recent breast augmentation. Pt seen today per LOS. Pt reports good appetite and po intake currently and PSYCH SPECIALIST. Pt denies any wt loss. Pt denies any N/V/C/D. Chart reviewed. Labs and meds reviewed. Pt with no questions or concerns at time of visit. Will continue to monitor. Current Diet: Regular Malnutrition Evaluation (07/11/19) The patient does not meet criteria for a specified degree of malnutrition at this time. Will re-evaluate at follow-up as appropriate. Diet Education Needs Assessment: Diet education not indicated. Diet tolerance: tolerating po Nutrition Care Level: Low Signed: Genna Contreras RD, LD, [facility]
[2019-07-11] MEDS: MUPIROCIN 2% OINT 22 GM TUBE TOP SCH (17:49)
--- NOTE | 2019-07-11 17:50 | NUR ---
PATIENT SHOWERED; DRESSING CHANGE TO LEFT BREAST COMPLETED- DRESSING IS CLEAN, DRY, AND INTACT. PATIENT REQUESTING PAIN MEDICATION AND IS AWARE PAIN MEDICATION WILL BE AVAILABLE IN 10 MINUTES. LAST PAIN MEDICATION ADMINISTERED AT 1400.
--- NOTE | 2019-07-11 19:24 | NUR ---
PATIENT IN STABLE CONDITION WITH NO S/S OF RESPIRATORY DISTRESS. PAIN MEDICATION GIVEN RECENTLY FOR LEFT BREAT/SURGICAL SITE PAIN 08/18. TELEMETRY APPLIED. DRESSING TO LEFT BREAST AREA IS CLEAN, DRY, AND INTACT. OUTPUT TO SUMMER DRAIN WAS 10CC. MOTHER PRESENT IN ROOM. CALL LIGHT IS WITHIN REACH, PATIENT INSTRUCTED TO CALL FOR ASSISTANCE NEEDED. BEDSIDE SHIFT REPORT GIVEN TO ONCOMING NURSE.
[2019-07-11] MEDS: ZOLPIDEM TARTRATE 5 MG TAB PO PRN (21:30)
--- NOTE | 2019-07-11 23:03 | NUR ---
Date of Service: 07/11/2019 Subjective:: The patient was doing fine anticoagulation the patient had no complaints. Wishes to go home. Awaiting decision for IV antibiotics. Discussed patient condition with ID. Objective: Patient alert oriented person time place. Patient no distress. Vital signs: Blood pressure 110/67, respiration 20, pulse 92, temperature 97.9 HEENT: No gross abnormalities Neck: Supple no JVD Lungs: Clear to auscultation Examination chest wall: Left breast implant dressing in place. Heart: Regular rate and rhythm, no murmurs no gallops Abdomen: Soft non tender, no guarding. Extremities: No edema Neurologic: Alert oriented 3, no focal weakness. Psychiatrist: Normal mood, normal judgment. Skin: No rashes Lab data: Hemoglobin 10.7, WBC 9.37, platelet count 485,000 Chemistry profile: Did reveal sodium 142, potassium 3.6, chloride 108, CO2 27, BUN 7, creatinine 0.5 Assessment: Left breast periprosthetic infection Leukocytosis Fever Status post removal of left breast implant. Plan of care: Continue antibiotics as per ID. No further recommendations. Will order PICC Arrange for IV antibiotics infusion per manager case management
[2019-07-12] VITALS (7 sets, daily range): BP systolic 85–111; BP diastolic 61–79
[2019-07-12] MEDS: SODIUM CHLORIDE 0.9% 1000ML 1,000 ML IV SCH ×3 (05:42→21:42)
--- NOTE | 2019-07-12 07:02 | NUR ---
Bedside report and rounds completed with oncoming nurse. Patient in bed with call light within reach. No issues or concerns noted.
--- NOTE | 2019-07-12 08:14 | NUR ---
Placed call to Kateryna with [facility] again. Left for callback.
[2019-07-12] MEDS: FAMOTIDINE 20 MG TAB PO SCH ×2 (08:52→16:41)
[2019-07-12] MEDS: SERTRALINE HCL 100 MG TAB PO SCH (08:52)
[2019-07-12] MEDS: HYDROCODONE/APAP 5MG-325MG TAB PO PRN ×3 (09:07→18:30)
[2019-07-12] MEDS: CEFTRIAXONE SOD 2 GM/NS 100 ML 100 ML IV SCH (11:50)
[2019-07-12] MEDS: MUPIROCIN 2% OINT 22 GM TUBE TOP SCH (11:51)
--- NOTE | 2019-07-12 11:58 | Diagnostic Imaging Report ---
EXAM: Ultrasound Evaluation of the left breast INDICATION: INFECTION; F/U POST SURGICAL IMPLANT REMOVAL COMPARISON: None TECHNIQUE: Rodrigez scale, color Doppler images of the left breast were obtained. FINDINGS: Sonographic images of the left breast demonstrate a percutaneous drain in place. No focal fluid collection or mass lesion. Physiologic lymph node in the left axilla. IMPRESSION: Left breast drain in place. No focal fluid collection. Signed by: Corrine Brannon MD on 07/12/2019 11:56 AM
--- NOTE | 2019-07-12 12:13 | NUR ---
Received callback from Kateryna at [facility]. She states that she is not seeing anything on pt. Gave customer service number, said they may be able to pull up information that she can't. DESTINY called customer service at [phone]. Spoke with Roman. He could not pull up anything on pt either. CM updated Dr. Baumann. CM also updated pt at bedside. Per Dr. Baumann, Iv abx would be $300/week, self pay ly. Pt states she is going to call her HR dept again and try to get a policy number.
--- NOTE | 2019-07-12 19:21 | NUR ---
PATIENT IN STABLE CONDITION WITH NO S/S OF RESPIRATORY DISTRESS. PATIENT RECENTLY RECEIVED PAIN MEDICATION. FAMILY MEMBER PRESENT IN ROOM. DRESSING TO LEFT BREAST IS C/D/I. CALL LIGHT IS WITHIN REACH, PATIENT INSTRUCTED TO CALL FOR ASSISTANCE NEEDED. BEDSIDE SHIFT REPORT GIVEN TO ONCOMING NURSE.
--- NOTE | 2019-07-12 19:47 | Progress Note ---
DATE: 07/11/2019 SUBJECTIVE: The patient was doing fine at the time of evaluation. The patient had no complaints. The patient understood and wished to go home. Denied fever or chills. No chest pain or shortness of breath. No abdominal pain. No nausea or vomiting. No diarrhea. The patient is under control. OBJECTIVE: GENERAL: The patient is alert and oriented to person, time, and place. The patient was in no distress. VITAL SIGNS: Blood pressure DICTATION ENDS HERE MD JOSEPH Bach/FLORENCIO /[id number]
[2019-07-12] MEDS: ZOLPIDEM TARTRATE 5 MG TAB PO PRN (21:30)
--- NOTE | 2019-07-12 23:38 | NUR ---
Subjective The patient was doing fine. No fever no chills. Objective: Patient alert oriented person time place. Patient no distress. Vital signs: Blood pressure 110/67, respiration 20, pulse 92, temperature 97.9 HEENT: No gross abnormalities Neck: Supple no JVD Lungs: Clear to auscultation Examination chest wall: Left breast implant dressing in place. Heart: Regular rate and rhythm, no murmurs no gallops Abdomen: Soft non tender, no guarding. Extremities: No edema Neurologic: Alert oriented 3, no focal weakness. Psychiatrist: Normal mood, normal judgment. Skin: No rashes Lab data: Hemoglobin 10.7, WBC 9.37, platelet count 485,000 Chemistry profile: Did reveal sodium 142, potassium 3.6, chloride 108, CO2 27, BUN 7, creatinine 0.5 Assessment: Left breast periprosthetic infection Leukocytosis Fever Status post removal of left breast implant. Plan of care: Continue antibiotics as per ID. No further recommendations. Arrange for IV antibiotics infusion per caser
[2019-07-13] VITALS: BP 100/63
[2019-07-13 04:00] VITALS: BP 96/69
[2019-07-13] MEDS: SODIUM CHLORIDE 0.9% 1000ML 1,000 ML IV SCH ×2 (05:42→12:05)
--- NOTE | 2019-07-13 07:25 | NUR ---
PATIENT IS AWAKE AND IN STABLE CONDITION WITH NO S/S OF RESPIRATORY DISTRESS. PATIENT REQUESTING PAIN MEDICATION WITH HER MORNING MEDICATIONS TODAY. DRESSING TO LEFT BREAST IS DRY AND INTACT; SUMMER DRAIN NOTED. CALL LIGHT IS WITHIN REACH- PATIENT INSTRUCTED TO CALL FOR ASSISTANCE NEEDED.
[2019-07-13] MEDS: HYDROCODONE/APAP 5MG-325MG TAB PO PRN (07:57)
[2019-07-13] MEDS: FAMOTIDINE 20 MG TAB PO SCH (08:01)
[2019-07-13] MEDS: SERTRALINE HCL 100 MG TAB PO SCH (08:01)
[2019-07-13 08:06] VITALS: BP 107/66
[2019-07-13 09:49] VITALS: BP 107/66
[2019-07-13] MEDS: MUPIROCIN 2% OINT 22 GM TUBE TOP SCH (10:59)
--- NOTE | 2019-07-13 11:32 | NUR ---
Spoke to pt with Dr. Baumann. Pt is agreeable to pay out of pocket for IV abx at his office. Dr. Scott said he will discharge pt today. Pt was instructed to go straight to Dr. Baumann's office from the [facility] for teaching and picker machine operator medications. Pt has Dr. Baumann's card with office information. [address] [place] [address]
[2019-07-13 11:50] VITALS: BP 97/78
[2019-07-13] MEDS: CEFTRIAXONE SOD 2 GM/NS 100 ML 100 ML IV SCH (11:52)
[2019-07-13] MEDS ORDERED: ULTRAM 50MG50 MG PO (12:21)
--- NOTE | 2019-07-13 15:15 | NUR ---
PATIENT DISCHARGE HOME- PATIENT OFF THE UNIT AT 1322 PER WHEELCHAIR ACCOMPANIED BY THE PCT TO THE FRONT LOBBY. PATIENT IN STABLE CONDITION WITH NO S/S OF RESPIRATORY DISTRESS. NO PAIN VOICED. DRESSING TO LEFT BREAST AREA WAS CHANGED PRIOR TO PATIENT BEING DISCHARGE- SUTURES INTACT, SUMMER INTACT WITH MINIMUM DRAINAGE. DRESSING C/D/I. DISCHARGE TEACHING, INSTRUCTIONS, AND MEDICATIONS GIVEN TO THE PATIENT. ALL PERSONAL ITEMS WERE TAKEN WITH THE PATIENT AND HER MOTHER.
== END 2019-07-13 13:24 | disposition home or self-care (01) | DRG 907 ==
LOC: ER 11:07 → ERHOLD 13:41 → MED/SURG2 14:48
PROVIDERS: ADMIT Internal Medicine; ATTEND Internal Medicine
PROC: 0HPU0JZ Removal of Synthetic Substitute from Left Breast, Open Approach (ICD-10-PCS; principal; 2019-07-07 15:01)
PROC: 02HV33Z Insertion of Infusion Device into Superior Vena Cava, Percutaneous Approach (ICD-10-PCS; 2019-07-11)
DX: T85.79XA Infection and inflammatory reaction due to other internal prosthetic devices, implants and grafts, initial encounter (principal); A41.9 Sepsis, unspecified organism; N39.0 Urinary tract infection, site not specified; N61.0 Mastitis without abscess; F32.9 Major depressive disorder, single episode, unspecified; B96.20 Unspecified Escherichia coli [E. coli] as the cause of diseases classified elsewhere; G89.18 Other acute postprocedural pain
CPT/HCPCS: 36415; 36569; 71045; 71046; 71260; 80048; 80053; 80202; 81001; 82550; 82553; 83518; 83605; 84484; 84702; 85025; 85379; 87040; 87070; 87071; 87075; 87086; 87186; 87205; 87400; 93005; 96361; 99284; J0696; J1100; J1885; J2001; J2250; J2405; J2543; J3010; J3370; J7030; J7050; Q9967